=== PATIENT | female | born 1960 | race African-American/Black ===

== ENCOUNTER 2024-03-04 15:15 | Emergency (ER) | payer OTHER ==
[~2024-03-04] VITALS: Ht 170.2 cm; Wt 120.0 kg
[2024-03-04 15:16] VITALS: O2SAT 96
[2024-03-04] MEDS: IBUPROFEN 800MG TABLET PO ONE (15:30)
[2024-03-04] MEDS: CYCLOBENZAPRINE 10MG TABLET PO ONE (15:30)
[2024-03-04 15:39] LABS: BASOPHILS % 1.4 % (0.0-2.0); EOSINOPHILS % 2.3 % (0.0-5.0); HEMATOCRIT. 38.6 % (36.0-48.0); HEMOGLOBIN. 12.5 g/dL (12.0-16.0); LYMPHOCYTES % 39.3 % (20.0-50.0); MEAN CORPUSCULAR HEMOGLOBIN 29.6 pg (28.0-32.0); MEAN CORPUSCULAR HGB CONC 32.5 g/dL (31.0-37.0); MEAN CORPUSCULAR VOLUME 91.2 fL (81.0-99.0); MEAN PLATELET VOLUME 10.5 fl (7.4-10.4); MONOCYTES % 7.5 % (2.0-8.0); NEUTROPHILS % 49.5 % (40.0-76.0); PLATELET 211 x1000/uL (130-400); RED BLOOD CELL COUNT 4.23 mill/uL (4.2-5.4); RED CELL DISTRIBUTION WIDTH 13.2 % (11.6-14.6)
[2024-03-04 15:44] LABS: CHLORIDE 107 mEq/L (98-107); POTASSIUM 3.7 mEq/L (3.5-5.1); SODIUM 136 mEq/L (136-145)
[2024-03-04 15:45] LABS: CALCIUM 8.9 mg/dL (8.7-10.4); CARBON DIOXIDE 24 mEq/L (21-32)
[2024-03-04 15:50] LABS: CREATININE 0.7 mg/dL (0.6-1.0); GLUCOSE 194 mg/dL (70-105); UREA NITROGEN BLOOD 9 mg/dL (9-23)
[2024-03-04] MEDS ORDERED: IBUP-2028 MT (16:10)
[2024-03-04 17:13] VITALS: BP 137/89; PULSE 78; RESP 16; TEMP 98.7
== END 2024-03-04 17:41 | disposition home or self-care (01) ==
LOC: ER 15:15
DX: M79.10 Myalgia, unspecified site (principal)
CPT/HCPCS: 36415; 80048; 85025; 99283